=== PATIENT | female | born 1990 | race Caucasian/White ===

== ENCOUNTER 2018-01-30 19:09 | Inpatient (IN) ==
[2018-02-02] MEDS ORDERED: Senna/Docusate Sodium 8.6/50 MG Tablet PO PRN (00:01)
[2018-02-02] MEDS ORDERED: Acetaminophen 325 MG Tablet PO PRN (00:01)
[2018-02-02] MEDS ORDERED: Citric Acid/Sodium Citrate Liq 15 ML UDC PO SCH (00:01)
[2018-02-02] MEDS ORDERED: Simethicone 80 MG Chew Tablet PO PRN (00:01)
--- NOTE | 2018-02-02 11:30 | P.PNOB ---
Subjective Interval history: Patient is a 28-year-old who is day 3 after repeat . Patient's pain is well-controlled. Patient reports eating and drinking without any nausea or vomiting. Patient reports minimal bleeding. Patient has passed gas but no bowel movements. Patient is walking without lower extremity pain or shortness of breath. Patient reports desire for contraception with a Depo- Provera shot. Objective Vital Signs/I&O: Vital Signs 02/02/18 08:29 Temperature 98.2 F Pulse Rate 76 Respiratory Rate 16 Blood Pressure 127/63 Intake & Output 02/01/18 02/02/18 02/02/18 18:59 06:59 18:59 Weight 72.72 kg Result Diagrams: 01/31/18 05:28 Objective Remarks: GENERAL: Well-nourished, well-developed patient. CARDIOVASCULAR: Regular rate and rhythm without murmurs, gallops, or rubs. RESPIRATORY: Breath sounds equal bilaterally. No accessory muscle use. ABDOMEN/GI: Abdomen soft, non-tender. Fundus: Firm, non-tender at umbilicus. GENITOURINARY: Light to moderate bleeding. EXTREMITIES: No cyanosis or edema, non-tender, without signs of DVT. Medications and IVs: Active Medications Acetaminophen (Tylenol) 650 mg PO Q6H PRN PRN Reason: PAIN SCALE 1 TO 2 Citric Acid/Sodium Citrate (Sod Citrate/Citric Acid Liq) 30 ml PO [employer] [facility] [place] Stop: 02/03/18 21:29 Lactated Ringer's (Lr 1000 Ml Inj) 1,000 mls @ 150 mls/hr IV.SIG .Q6H40M [facility] [place] Ondansetron HCl (Zofran Odt) 4 mg PO Q6H PRN PRN Reason: NAUSEA OR VOMITING Oxycodone/Acetaminophen (Percocet 5/325 Mg) 1 tab PO Q4H PRN PRN Reason: PAIN SCALE 3 TO 5 Oxycodone/Acetaminophen (Percocet 5/325 Mg) 2 tab PO Q4H PRN PRN Reason: PAIN SCALE 6 TO 10 Last Admin: 02/02/18 02:30 Dose: 2 tab Senna/Docusate Sodium (Julissa-Colace) 2 tab PO Q12H PRN PRN Reason: CONSTIPATION Last Admin: 02/02/18 09:09 Dose: 2 tab Simethicone (Mylicon Chew) 80 mg PO QID PRN PRN Reason: FLATULANCE Sodium Chloride (Ns Flush) 2 ml IV.FLUSH BID RASHID Sodium Chloride (Ns Flush) 2 ml IV.FLUSH PRN PRN PRN Reason: FLUSH AFTER USING IV ACCESS Assessment and Plan - Plan Patient is a 28-year-old . Patient is day 3 after . Patient was counseled to do 6 weeks of pelvic rest. Patient was counseled to follow up in 1 weeks. Patient requested follow-up and contraception. --AF VSS --Continue routine care -- Percocet when necessary for pain --Encourage OOB --Pelvic rest for 6 weeks. Will need follow-up appointment in 1 week for incision check --Contraception: Depo-Provera shot --Anticipate discharge today - Attending Attestation The patient was seen and evaluated with the resident and I was involved in all jeronimo decision making. Continue routine and postoperative care. SMS
[2018-02-02] MEDS ORDERED: medroxyPROGESTERone Acetate Inj 150 MG/ML Syringe IM ONE (12:30)
== END 2018-02-02 16:50 | disposition home or self-care (01) ==
LOC: UNDODISIN → H1EA 19:54
PROVIDERS: ADMIT Obstetrics & Gynecology Maternal & Fetal Medicine; ATTEND Obstetrics & Gynecology Maternal & Fetal Medicine